=== PATIENT | female | born 1965 | race Caucasian/White ===

== ENCOUNTER 2017-04-18 14:18 | Emergency (ER) | payer BC ==
[~2017-04-18] VITALS: Ht 167.6 cm; Wt 100.0 kg
[~2017-04-18 14:18] MED LIST: DOCU-216 PO; FER325 PO; IBUP200C PO; MEDROXYPROGESTERONE PO; PRO AIR; VIT D PO; [UNRECOGNIZED DRUG - CODE] PO
[2017-04-18 14:19] VITALS: Ht 167.6 cm; Wt 100.0 kg
--- NOTE | 2017-04-18 16:09 | ERA ---
ER Documentation Chief Complaint Date/Time DATE: 04/18/17 TIME: 16:09 Chief Complaint Abdominal pain HPI The patient is 51-year-old female, presenting to the ER because of left upper quadrant abdominal pain intermittently for the last 4 days, worse with eating. She denies fever, chills, neck pain, chest pain, nausea, vomiting, dysuria, diarrhea. She does not smoke, drinks socially Past medical history: None Past surgical history: Right inguinal herniorrhaphy ROS All systems reviewed and are negative except as per history of present illness. Medications Home Meds Active Scripts Pantoprazole* (Protonix*) 40 Mg Tablet., 40 MG PO DAILY, #20 TAB Prov:TOMER MANNING MD 04/18/17 Reported Medications [Pro Air] No Conflict Check, DAILY 02/24/14 Docusate Sodium (Dok) 100 Mg Capsule, 100 MG PO DAILY 02/24/14 Ibuprofen* (Ibuprofen*) 200 Mg Capsule, 400 MG PO DAILY Y for PAIN 02/24/14 Ferrous Sulfate* (Ferrous Sulfate*) 325 Mg Tabec, 325 MG PO DAILY 02/24/14 [Medroxyprogesterone] No Conflict Check, 10 MG PO HS 09/30/13 [Vit D] No Conflict Check, 1000 PO DAILY 09/30/13 Ergocalciferol* (Ergocalciferol*) 50,000 Unit Capsule, 19785 UNIT PO WEEKLY 09/30/13 Allergies Allergies: Coded Allergies: No Known Allergy (Unverified , 02/04/15) PMhx/Soc History of Surgery: Yes ([id number], Abdominal Hernia Repair 2004 and 4months ago) Anesthesia Reaction: No Hx Neurological Disorder: No Hx Respiratory Disorders: Yes (ASTHMA) Hx Cardiac Disorders: No Hx Psychiatric Problems: No Hx Miscellaneous Medical Probl: No Hx Alcohol Use: Yes ("Once in a blue [place]") Hx Substance Use: No Hx Tobacco Use: No Physical Exam Vitals Vital Signs Date Time Temp Pulse Resp B/P Pulse Ox O2 Delivery O2 Flow Rate FiO2 04/18/17 17:53 98.5 88 16 134/88 95 Room Air 04/18/17 14:19 98.5 103 20 143/88 97 Physical Exam Const: No acute distress. Head: Atraumatic. Eyes: Normal Conjunctiva. ENT: Normal External Ears, Nose and Mouth. Neck: Full range of motion. No meningismus. Resp: Clear to auscultation bilaterally. Cardio: Regular rate and rhythm. Abd: Soft, non distended, normal bowel sounds, minimal left upper quadrant discomfort, no right lower quadrant, right upper quadrant, epigastric, CVA tenderness Skin: No petechiae or rashes. Back: No midline or flank tenderness. Ext: No cyanosis, or edema. Neur: Awake and alert. No focal deficit Psych: Normal Mood and Affect. Result Diagram: 04/18/17 1633 04/18/17 1633 Results 24 hrs Laboratory Tests Test 04/18/17 16:33 04/18/17 16:47 White Blood Count 7.010^3/ul Red Blood Count 4.6710^6/ul Hemoglobin 14.3g/dl Hematocrit 42.5% Mean Corpuscular Volume 91.0fl Mean Corpuscular Hemoglobin 30.6pg Mean Corpuscular Hemoglobin Concent 33.6g/dl Red Cell Distribution Width 12.7% Platelet Count 79515^3/UL Mean Platelet Volume 11.7fl Neutrophils % 52.0% Lymphocytes % 35.8% Monocytes % 8.3% Eosinophils % 3.1% Basophils % 0.4% Nucleated Red Blood Cells % 0.0/100WBC Neutrophils # 3.710^3/ul Lymphocytes # 2.510^3/ul Monocytes # 0.610^3/ul Eosinophils # 0.210^3/ul Basophils # 0.010^3/ul Nucleated Red Blood Cells # 0.010^3/ul Sodium Level 138mmol/L Potassium Level 3.9mmol/L Chloride Level 103mmol/L Carbon Dioxide Level 25mmol/L Anion Gap 14 Blood Urea Nitrogen 13mg/dl Creatinine 0.67mg/dl Glucose Level 125mg/dl Calcium Level 9.2mg/dl Total Bilirubin 0.2mg/dl Direct Bilirubin 0.00mg/dl Indirect Bilirubin 0.2mg/dl Aspartate Amino Transf (AST/SGOT) 72IU/L Alanine Aminotransferase (ALT/SGPT) 125IU/L Alkaline Phosphatase 63IU/L Total Protein 7.9g/dl Albumin 4.7g/dl Globulin 3.20g/dl Albumin/Globulin Ratio 1.46 Lipase 153U/L Bedside Urine pH (LAB) 6.5 Bedside Urine Protein (LAB) Negative Bedside Urine Glucose (UA) Negative Bedside Urine Ketones (LAB) Negative Bedside Urine Blood Negative Bedside Urine Nitrite (LAB) Negative Bedside Urine Leukocyte Esterase (L Negative Current Medications Medications (Trade) Dose Ordered Sig/Radha Route PRN Reason Start Time Stop Time Status Last Admin Dose Admin Acetaminophen/ Hydrocodone Bitart ([place] (10/325)) 1 tab ONCE ONCE PO 04/18/17 16:30 04/18/17 16:31 DC 04/18/17 16:34 Ondansetron HCl (Zofran Odt) 4 mg ONCE STAT ODT 04/18/17 16:20 04/18/17 16:22 DC 04/18/17 16:33 Procedures/MDM MEDICAL MAKING DECISION: The patient is a 51-year-old female, presenting with acute abdominal pain of unclear etiology, most likely acute gastritis. She was treated with [place] 10 mg p.o. for pain and Zofran ODT for nausea with good response. The differential diagnoses considered include but are not limited to cholelithiasis, cholecystitis, cystitis, pancreatitis, hepatitis, gastritis, peptic ulcer disease, gastric ulcer, appendicitis, diverticulitis, cholangitis, choledocholithiasis, partial small bowel obstruction. Departure Diagnosis: Primary Impression: Abdominal pain Condition: Good Comments She was discharged with Protonix I discussed the findings with the patient. I advised the patient to follow-up with the primary physician in about 1-2 days, sooner if needed and return if any concern. The patient's blood pressure was elevated (>120/80) but appears stable without evidence of hypertension emergency or urgency. The patient was counseled about the risks of hypertension and urged to pursue outpatient monitoring and therapy within a week with their primary care physician. TOMER MANNING MD Apr 18, 2017 16:09
[2017-04-18] MEDS ORDERED: ONDANSETRON (ODT) 4 MG TAB ODT STA (16:20)
[2017-04-18] MEDS ORDERED: HYDROCODONE/APAP (10/325) TAB PO ONE (16:30)
[2017-04-18 16:43] LABS: URINE BLOOD (Dip) POC Negative (NEGATIVE)
[2017-04-18 16:46] LABS: ADD SCAN DIFF NO
[2017-04-18 17:11] LABS: ALBUMIN 4.7 g/dl (3.3-4.9); ALBUMIN/GLOBULIN RATIO 1.46; BILIRUBIN,INDIRECT 0.2 mg/dl (0-1.1); BILIRUBIN,TOTAL 0.2 mg/dl (0.2-1.3); CALCIUM 9.2 mg/dl (8.4-10.2); CREATININE 0.67 mg/dl (0.44-1.00); POTASSIUM 3.9 mmol/L (3.5-5.1); TOTAL PROTEIN 7.9 g/dl (6.1-8.1)
[2017-04-18 17:17] LABS: BASOPHILS % 0.4 % (0.0-2.0); EOSINOPHILS # 0.2 10^3/ul (0.0-0.5); EOSINOPHILS % 3.1 % (0.0-7.0); HEMATOCRIT 42.5 % (37.0-47.0); HEMOGLOBIN 14.3 g/dl (12.0-16.0); LYMPHOCYTES # 2.5 10^3/ul (0.8-2.9); LYMPHOCYTES % 35.8 % (15.0-51.0); MEAN CORPUSCULAR HEMOGLOBIN 30.6 pg (29.0-33.0); MEAN CORPUSCULAR HGB CONC 33.6 g/dl (32.0-37.0); MEAN PLATELET VOLUME 11.7 fl (7.4-10.4); MONOCYTE # 0.6 10^3/ul (0.3-0.9); MONOCYTES % 8.3 % (0.0-11.0); NEUTROPHIL # 3.7 10^3/ul (1.6-7.5); PLATELET COUNT 156 10^3/UL (140-415); RED BLOOD COUNT 4.67 10^6/ul (4.20-5.40); RED CELL DISTRIBUTION WIDTH 12.7 % (11.5-14.5)
[2017-04-18] MEDS ORDERED: PANT40TA3 PO (17:41)
[2017-04-18 17:53] VITALS: BP 134/88; PULSE 88; RESP 16; TEMP 98.5
== END 2017-04-18 17:54 | disposition home or self-care (01) ==
LOC: FTE 14:18
DX: R10.12 Left upper quadrant pain (principal); J45.909 Unspecified asthma, uncomplicated
CPT/HCPCS: 36415; 80053; 81003; 83690; 85025; 99283; Z7610

== ENCOUNTER 2017-06-10 12:04 | Emergency (ER) | END 2017-06-10 13:38 | disposition home or self-care (01) | DX: J02.0 Streptococcal pharyngitis (principal); J45.909 Unspecified asthma, uncomplicated; R40.2412 Glasgow coma scale score 13-15, at arrival to emergency department | CPT/HCPCS: 96372; 99284; J0561; Z7610 ==